=== PATIENT | male | born 1965 | race Caucasian/White ===

== ENCOUNTER 2020-03-03 05:55 | Emergency (ER) | payer SELFPAY ==
[2020-03-03 06:17] VITALS: BP 142/77
--- NOTE | 2020-03-03 08:48 | ER Document Report ---
HPI - HPI Time Seen by Provider: 03/03/20 08:40 Pain Level: 3 Notes: 54-year-old male presents to the emergency room for complaints of right ear pain after he tried to clean his ear with a Q-tip 8 weeks ago while he was incarcerated. States that he tried [id number] drops with some relief but then he was released from incarceration and stopped using drops. Denies any loss of hearing. Has tried [id number] hydrogen peroxide without full relief. Denies any drainage from the ear. Pain is 2 out of 10. Denies fevers, chills, chest pain,palpitations, shortness of breath, dyspnea, nausea, vomiting, diarrhea, abdominal pain, hematuria,blurred vision, double vision, loss of vision, speech changes, LH, dizziness, syncope, headaches, wheezing, ST, URI, neck pain, weakness, bowel or bladder dysfunction, saddle anesthesia, numbness or tingling in bilateral upper or lower extremities equally, muscle paralysis, weakness in bilateral upper or lower extremities equally or rash. MEDICATIONS: I agree with the patient medications as charted by the RN. ALLERGIES: I agree with the allergies as charted by the RN. PAST MEDICAL HISTORY/PAST SURGICAL HISTORY: Reviewed and agree as charted by RN. SOCIAL HISTORY: Reviewed and agree as charted by RN. FAMILY HISTORY: No significant familial comorbid conditions directly related to patient complaint EXAM: Reviewed vital signs as charted by RN. REVIEW OF SYSTEMS:reviewed vital signs by RN CONSTITUTIONAL : Denies fever, chills, or sweats. Denies recent illness. EENT: reports right ear pain. Denies eye, throat, or mouth pain or symptoms. Denies nasal or sinus congestion or discharge. Denies throat, tongue, or mouth swelling or difficulty swallowing. CARDIOVASCULAR: Denies chest pain. Denies palpitations or racing or irregular heart beat. Denies ankle edema. RESPIRATORY: Denies cough, cold, or chest congestion. Denies shortness of breath, difficulty breathing, or wheezing. GASTROINTESTINAL: Denies abdominal pain or distention. Denies nausea, vomiting, or diarrhea. Denies blood in vomitus, stools, or per rectum. Denies black, tarry stools. Denies constipation. GENITOURINARY: Denies difficulty urinating, painful urination, burning, frequency, blood in urine, or discharge. MUSCULOSKELETAL: Denies back or neck pain or stiffness. Denies joint pain or swelling. SKIN: Denies rash, lesions or sores. HEMATOLOGIC : Denies easy bruising or bleeding. LYMPHATIC: Denies swollen, enlarged glands. NEUROLOGICAL: Denies confusion or altered mental status. Denies passing out or loss of consciousness. Denies dizziness or lightheadedness. Denies headache. Denies weakness or paralysis or loss of use of either side. Denies problems with gait or speech. Denies sensory loss, numbness, or tingling. Denies seizures. PSYCHIATRIC: Denies anxiety or stress. Denies depression, suicidal ideation, or homicidal ideation. ALL OTHER SYSTEMS REVIEWED AND NEGATIVE. Dictation was performed using [employer] voice recognition software PHYSICAL EXAMINATION: GENERAL: Well-appearing, well-nourished and in no acute distress. HEAD: Atraumatic, normocephalic. EYES: Pupils equal round and reactive to light, extraocular movements intact, sclera anicteric, conjunctiva are normal. ENT: Right EAC with erythema induration, no drainage. TM intact, no erythema. Left EAC without any erythema induration, TM pearly goddard intact no erythema nares patent, oropharynx clear without exudates. Moist mucous membranes. NECK: Normal range of motion, supple without lymphadenopathy LUNGS: Breath sounds clear to auscultation bilaterally and equal. No wheezes rales or rhonchi. HEART: Regular rate and rhythm without murmurs ABDOMEN: Soft, nontender, nondistended abdomen. No guarding, no rebound. No masses appreciated. Musculoskeletal: Normal range of motion, no pitting or edema. No cyanosis. NEUROLOGICAL: Cranial nerves grossly intact. Normal speech, normal gait. Normal sensory, motor exams PSYCH: Normal mood, normal affect. SKIN: Warm, Dry, normal turgor, no rashes or lesions noted. - REPRODUCTIVE Reproductive: DENIES: : Past Medical History - General Information source: Patient - Social History Smoking Status: Never Smoker Family History: Reviewed & Not Pertinent Patient has homicidal ideation: No - Past Medical History Cardiac Medical History: Reports: Hx Hypertension - on meds Denies: Hx Coronary Artery Disease, Hx Heart Attack Pulmonary Medical History: Denies: Hx Asthma, Hx Bronchitis, Hx COPD, Hx Pneumonia Neurological Medical History: Denies: Hx Cerebrovascular Accident, Hx Seizures Endocrine Medical History: Reports: Hx Diabetes Mellitus Type 2. Denies: Hx Graves' Disease, Hx Hyperthyroidism, Hx Hypothyroidism Renal/ Medical History: Reports: Hx Hydrocele Malignancy Medical History: Denies Hx Bone Cancer, Denies Hx Brain Cancer, Denies Hx Colorectal Cancer, Denies Hx Leukemia, Denies Hx Liver Cancer, Denies Hx Lung Cancer, Denies Hx Lymphoma, Denies Hx Pancreatic Cancer, Denies Hx Prostate Cancer, Denies Hx Renal (Kidney) Cancer, Denies Hx Skin Cancer, Denies Hx Testicular Cancer GI Medical History: Denies: Hx Crohn's Disease, Hx Gastroesophageal Reflux Disease, Hx Hiatal Hernia, Hx Irritable Bowel, Hx Liver Failure, Hx Pancreatitis , Hx Ulcer Musculoskeletal Medical History: Reports Hx Arthritis, Denies Hx Fibromyalgia, Denies Hx Muscular Dystrophy, Denies Hx Systemic Lupus Erythematosus Traumatic Medical History: Denies: Hx Fractures Past Surgical History: Reports: Hx Orthopedic Surgery - left knee. Denies: Hx Colostomy, Hx Pacemaker - Immunizations Hx Diphtheria, Pertussis, Tetanus Vaccination: No Vertical Provider Document - CONSTITUTIONAL Agree With Documented VS: Yes Exam Limitations: No Limitations General Appearance: WD/WN - INFECTION CONTROL TRAVEL OUTSIDE OF THE [place] IN LAST 30 DAYS: No Course - Re-evaluation Re-evalutation: 03/03/20 13:51 Afebrile vital stable no distress. Nurses notes reviewed. Discussed with patient that he does have an infection of his outer ear canal will prescribe him antibiotic drops. Advised to apply cotton to his ears while showering. Advised to use drops for 7 days. Follow-up with PCP after course of treatment. After performing a Medical Screening Examination, I estimate there is LOW risk for malignant otitis media, mastoiditis, MENINGITIS, or ACUTE CORONARY SYNDROME, thus I consider the discharge disposition reasonable. I have reevaluated this patient multiple times and no significant life threatening changes are noted. The patient and I have discussed the diagnosis and risks, and we agree with discharging home to follow-up on an outpatient basis with the understanding that symptoms and presentations can change. We also discussed returning to the Emergency Department immediately if new or worsening symptoms occur. We have discussed the symptoms which are most concerning (e.g., high fevers, confusion) that necessitate immediate return. - Vital Signs Vital signs: Temp Pulse Resp BP Pulse Ox 98.5 F 65 20 142/77 H 98 03/03/20 06:23 03/03/20 06:16 03/03/20 06:16 03/03/20 06:16 03/03/20 06:16 Discharge - Discharge Clinical Impression: Right otitis externa Qualifiers: Otitis externa type: swimmer's ear Chronicity: acute Qualified Code(s): H60.331 - Swimmer's ear, right ear Condition: Stable Disposition: HOME, SELF-CARE Instructions: Use of Ear Drops ([facility]), Otitis Externa ([facility]) Additional Instructions: Use drops as directed. Follow-up with your doctor as needed. Please become balls in the ears while showering to prevent fluid from getting in your ears. Please use medication as directed. Alternate between Tylenol and ibuprofen for pain control. Return immediately for any new or worsening symptoms. Follow up with primary care provider, call tomorrow to make followup appointment. Prescriptions: Ofloxacin [Floxin 0.3% Otic Drops 5 ml] 5 drop OT BID #1 bottle Forms: Return to Work Referrals: SMITH BAILEY MD [Primary Care Provider] - Follow up as needed
== END 2020-03-03 08:55 | disposition home or self-care (01) ==
LOC: ER 05:55
DX: H60.331 Swimmer's ear, right ear (principal); H92.01 Otalgia, right ear; I10 Essential (primary) hypertension; E11.9 Type 2 diabetes mellitus without complications; Z79.899 Other long term (current) drug therapy; Z79.84 Long term (current) use of oral hypoglycemic drugs
CPT/HCPCS: 99282

== ENCOUNTER 2020-03-09 14:31 | Emergency (ER) | payer OTHER ==
--- NOTE | 2020-03-09 15:08 | ER Document Report ---
ED Medical Screen (RME) - General Chief Complaint: Fall Stated Complaint: FALL- LEG/HEAD INJURY Time Seen by Provider: 03/09/20 15:02 Primary Care Provider: SMITH BAILEY MD [Primary Care Provider] - Follow up as needed Mode of Arrival: Wheelchair Information source: Patient Notes: 54-year-old male presented to ED after a fall while on a ladder. He states he and the ladder both slid down the wall he hit his head on the door jam coming down causing a laceration above the left eyebrow and then his legs both got caught in the ladder when the ladder came down catching on the bed frame. He is got contusions to both legs from the knee down to the ankle both legs are very swollen. Patient states his tetanus is up-to-date. We will get x-rays on both lower legs and have him examined by another provider who could lay him down and thoroughly examined his legs. I have greeted and performed a rapid initial assessment of this patient. A comprehensive ED assessment and evaluation of the patient, analysis of test results and completion of medical decision making process will be conducted by an additional ED providers. TRAVEL OUTSIDE OF THE [place] IN LAST 30 DAYS: No - Related Data Allergies/Adverse Reactions: No Known Allergies Allergy (Verified 07/04/14 09:48) Past Medical History - Past Medical History Cardiac Medical History: Reports: Hx Hypertension - on meds Denies: Hx Coronary Artery Disease, Hx Heart Attack Pulmonary Medical History: Denies: Hx Asthma, Hx Bronchitis, Hx COPD, Hx Pneumonia Neurological Medical History: Denies: Hx Cerebrovascular Accident, Hx Seizures Endocrine Medical History: Reports: Hx Diabetes Mellitus Type 2. Denies: Hx Graves' Disease, Hx Hyperthyroidism, Hx Hypothyroidism Renal/ Medical History: Reports: Hx Hydrocele Malignancy Medical History: Denies Hx Bone Cancer, Denies Hx Brain Cancer, Denies Hx Colorectal Cancer, Denies Hx Leukemia, Denies Hx Liver Cancer, Denies Hx Lung Cancer, Denies Hx Lymphoma, Denies Hx Pancreatic Cancer, Denies Hx Prostate Cancer, Denies Hx Renal (Kidney) Cancer, Denies Hx Skin Cancer, Denies Hx Testicular Cancer GI Medical History: Denies: Hx Crohn's Disease, Hx Gastroesophageal Reflux Disease, Hx Hiatal Hernia, Hx Irritable Bowel, Hx Liver Failure, Hx Pancreatitis, Hx Ulcer Musculoskeltal Medical History: Reports Hx Arthritis, Denies Hx Fibromyalgia, Denies Hx Muscular Dystrophy, Denies Hx Systemic Lupus Erythematosus Traumatic Medical History: Denies: Hx Fractures Past Surgical History: Reports: Hx Orthopedic Surgery - left knee. Denies: Hx Colostomy, Hx Pacemaker - Immunizations Hx Diphtheria, Pertussis, Tetanus Vaccination: No Physical Exam - Vital signs Vitals: Temp Pulse Resp BP Pulse Ox 97.5 F 82 20 160/82 H 100 03/09/20 14:36 03/09/20 14:36 03/09/20 14:36 03/09/20 14:36 03/09/20 14:36 Course - Vital Signs Vital signs: Temp Pulse Resp BP Pulse Ox 97.5 F 82 20 160/82 H 100 03/09/20 14:36 03/09/20 14:36 03/09/20 14:36 03/09/20 14:36 03/09/20 14:36 Doctor's Discharge - Discharge Referrals: SMITH BAILEY MD [Primary Care Provider] - Follow up as needed
[2020-03-09 15:45] LABS: ABSOLUTE BASOPHILS # (AUTO) 0.1 10^3/uL (0.0-0.2); ABSOLUTE EOSINOPHILS # (AUTO) 0.2 10^3/uL (0.0-0.6); ABSOLUTE LYMPHOCYTES (AUTO) 1.5 10^3/uL (0.5-4.7); ABSOLUTE NEUT (AUTO) 7.4 10^3/uL (1.7-8.2); EOSINOPHILS % (AUTO) 2.3 % (0-6); HEMATOCRIT 46.1 % (37.9-51.0); HEMOGLOBIN 16.1 g/dL (13.5-17.0); LYMPHOCYTES % (AUTO) 14.9 % (13-45); MEAN CORPUSCULAR HEMOGLOBIN 29.9 pg (27.0-33.4); MEAN CORPUSCULAR HGB CONC 34.9 g/dL (32.0-36.0); MEAN CORPUSCULAR VOLUME 86 fl (80-97); MONOCYTES % (AUTO) 9.9 % (3-13); PLATELET COUNT 195 10^3/uL (150-450); RED BLOOD COUNT 5.37 10^6/uL (4.35-5.55); RED CELL DISTRIBUTION WIDTH 14.2 % (11.5-14.0); SEGMENTED NEUTROPHILS % (AUTO) 71.9 % (42-78); TOTAL CELLS COUNTED % (AUTO) 100 %; WHITE BLOOD COUNT 10.2 10^3/uL (4.0-10.5)
[2020-03-09 15:51] LABS: ALBUMIN 4.6 g/dL (3.5-5.0); ALKALINE PHOSPHATASE 71 U/L (38-126); ANION GAP 8 (5-19); ASPARTATE AMINO TRANSFERASE 31 U/L (17-59); BILIRUBIN,TOTAL 0.6 mg/dL (0.2-1.3); BLOOD UREA NITROGEN 18 mg/dL (7-20); CALCIUM 9.7 mg/dL (8.4-10.2); CARBON DIOXIDE 29 mmol/L (22-30); CHLORIDE 103 mmol/L (98-107); CREATINE KINASE 199 U/L (55-170); GLUCOSE 97 mg/dL (75-110); TOTAL PROTEIN 7.6 g/dL (6.3-8.2)
--- NOTE | 2020-03-09 16:01 | RADIOLOGY REPORT (SQ) ---
EXAM DESCRIPTION: TIB FIB BILAT 2 VIEWS IMAGES COMPLETED DATE/TIME: 03/09/2020 3:45 pm REASON FOR STUDY: fall injury COMPARISON: None. NUMBER OF VIEWS: Two views. TECHNIQUE: Two radiographic images acquired of the right and left tibia and fibula to include the kn ee and ankle in at least one projection. LIMITATIONS: None. FINDINGS: RIGHT: MINERALIZATION: Normal. BONES: No acute fracture or dislocation. No worrisome bone lesions. Degenerative changes at the kne e with moderate to severe medial joint space loss in tricompartment osteophytosis. Plantar and calca osiris enthesophytes. Degenerative changes about the ankle. SOFT TISSUES: No obvious swelling or foreign body. OTHER: No other significant finding. LEFT: MINERALIZATION: Normal. BONES: No acute fracture or dislocation. No worrisome bone lesions. Postsurgical change from total knee arthroplasty. Heterotopic bone about the knee joint and proximal tib-fib syndesmosis. Superior and plantar calcaneal enthesophytes. Midfoot osteophytosis. Degenerative changes about the ankle. SOFT TISSUES: No obvious swelling or foreign body. OTHER: No other significant finding. IMPRESSION: 1. No evidence of acute bony abnormality of either tibia or fibula. 2. Degenerative changes about both knees and ankles. Left total knee arthroplasty. TECHNICAL DOCUMENTATION: JOB ID: [id number] 2010 [employer]- All Rights Reserved Reading location - IP/workstation name: [email or web address]
[2020-03-09 18:18] LABS: APPEARANCE,URINE CLEAR; BILIRUBIN,URINE NEGATIVE (NEGATIVE); COLOR,URINE YELLOW; GLUCOSE, URINE NEGATIVE (NEGATIVE); KETONES,URINE NEGATIVE (NEGATIVE); LEUKOCYTE ESTERASE,URINE NEGATIVE (NEGATIVE); NITRITE,URINE NEGATIVE (NEGATIVE); PROTEIN,URINE NEGATIVE (NEGATIVE); URINE SPECIFIC GRAVITY 1.023; UROBILINOGEN,URINE NEGATIVE mg/dL (<2.0)
[2020-03-09] MEDS ORDERED: LIDOCAINE 1.5%/EPINEPHRINE INJ-PF 30 ML SDV INJ ONE (18:31)
--- NOTE | 2020-03-09 18:36 | ER Document Report ---
ED General - General Chief Complaint: Fall Stated Complaint: FALL- LEG/HEAD INJURY Time Seen by Provider: 03/09/20 15:02 Primary Care Provider: SMITH BAILEY MD [Primary Care Provider] - Follow up as needed Mode of Arrival: Wheelchair TRAVEL OUTSIDE OF THE [place] IN LAST 30 DAYS: No - HPI Notes: Patient is a 54-year-old male who presents to the emergency department for evaluation. He was on a ladder, about 6 feet above the ground, indoors, when the ladder slipped from underneath him. He fell, striking his right forehead against a piece of wood, then fell in between the rungs of the ladder, stuck between the wall and the bed. He scraped his legs on the way in. He has been mobile since then, but notes that there is been significant swelling. His tetanus is up-to-date. He denies any loss of consciousness. No neck or back pain. He states he did have some significant bleeding from the left eyebrow region but it is stopped. He denies any difficulty seeing, speaking, swallowing. He currently puts his pain at a 2 out of 5. Patient also asks about his right ear. He was actually seen in the emergency department for some right ear pain and swelling. He was diagnosed with an otitis externa, started on some sort of antibiotic drops. He states that he had significant swelling at this time. He states that the pain is feeling improved, but he still feels as if he is "hearing through a tunnel." No fevers or chills. No rhinorrhea, no sore throat. - Related Data Allergies/Adverse Reactions: No Known Allergies Allergy (Verified 07/04/14 09:48) Home Medications: Metformin, simvastatin, losartan Past Medical History - General Information source: Patient - Social History Smoking Status: Former Smoker Frequency of alcohol use: Rare Drug Abuse: None Family History: Reviewed & Not Pertinent Patient has homicidal ideation: No - Past Medical History Cardiac Medical History: Reports: Hx Hypercholesterolemia, Hx Hypertension - on meds Denies: Hx Coronary Artery Disease, Hx Heart Attack Pulmonary Medical History: Denies: Hx Asthma, Hx Bronchitis, Hx COPD, Hx Pneumonia Neurological Medical History: Denies: Hx Cerebrovascular Accident, Hx Seizures Endocrine Medical History: Reports: Hx Diabetes Mellitus Type 2. Denies: Hx Graves' Disease, Hx Hyperthyroidism, Hx Hypothyroidism Renal/ Medical History: Reports: Hx Hydrocele Malignancy Medical History: Denies Hx Bone Cancer, Denies Hx Brain Cancer, Denies Hx Colorectal Cancer, Denies Hx Leukemia, Denies Hx Liver Cancer, Denies Hx Lung Cancer, Denies Hx Lymphoma, Denies Hx Pancreatic Cancer, Denies Hx Prostate Cancer, Denies Hx Renal (Kidney) Cancer, Denies Hx Skin Cancer, Denies Hx Testicular Cancer GI Medical History: Denies: Hx Crohn's Disease, Hx Gastroesophageal Reflux Disease, Hx Hiatal Hernia, Hx Irritable Bowel, Hx Liver Failure, Hx Pancreatitis, Hx Ulcer Musculoskeletal Medical History: Reports Hx Arthritis, Denies Hx Fibromyalgia, Denies Hx Muscular Dystrophy, Denies Hx Systemic Lupus Erythematosus Traumatic Medical History: Denies: Hx Fractures Past Surgical History: Reports: Hx Orthopedic Surgery - left knee, Hx Testicular Surgery - Hydrocele. Denies: Hx Colostomy, Hx Pacemaker - Immunizations Hx Diphtheria, Pertussis, Tetanus Vaccination: No Review of Systems - Review of Systems Musculoskeletal: See HPI Skin: See HPI -: Yes All other systems reviewed and negative Physical Exam - Vital signs Vitals: Temp Pulse Resp BP Pulse Ox 97.5 F 82 20 160/82 H 100 03/09/20 14:36 03/09/20 14:36 03/09/20 14:36 03/09/20 14:36 03/09/20 14:36 - Notes Notes: Vital signs reviewed, please refer to chart. Head is normocephalic. 2.5 cm linear laceration noted to the left brow. Pupils equal round, reactive to light. Mild amount of edema noted to the right external auditory canal with some small exudative discharge noted. Unable to fully visualize TM. Neck is supple without meningismus. Heart is regular rate and rhythm. Lungs are clear to auscultation bilaterally. Abdomen is soft, nontender, normoactive bowel soun ds throughout. Extremities without cyanosis, clubbing. Posterior calves are nontender. Anterior lower legs are tender bilaterally. Peripheral pulses are equal. Abrasions noted to bilateral shins. Patient is awake, alert, oriented x3. Cranial nerves II - XII are grossly intact without focal neurological deficits. Strength is plus 5 out of 5 bilateral upper and lower extremities. Sensation is intact. Reflexes symmetrical. Intact [id number], rapid alternating movements, [id number]. Course - Re-evaluation Re-evalutation: 03/09/20 19:26 Patient presents to the emergency department for evaluation. Regarding his ear, certainly he still has some residual appearing infection, I am unable to visualize the TM. He already has follow-up regarding that tomorrow, he is encouraged to keep that and continue his ofloxacin. His x-rays are unremarkable. He is told to keep his legs elevated. We will clean his leg w ounds, place him in Ap wrap with compression. He is warned about signs of compartment syndrome and told to return with any worsening. I did closed his facial laceration, he is given instructions to have sutures removed in 5 to 7 days, watch for signs of infection. He voiced understanding to care instructions. He will follow-up with primary care next week, return to the emergency department with worsening or new concerning symptoms of any sort. - Vital Signs Vital signs: Temp Pulse Resp BP Pulse Ox 98.0 F 84 18 150/86 H 98 03/09/20 18:40 03/09/20 18:40 03/09/20 18:40 03/09/20 18:40 03/09/20 18:40 - Laboratory Result Diagrams: 03/09/20 15:20 03/09/20 15:20 Laboratory results interpreted by me: 03/09/20 03/09/20 03/09/20 15:18 15:20 15:20 RDW 14.2 H Creatine Kinase 199 H Urine Blood SMALL H - Diagnostic Test Radiology reviewed: Reports reviewed Radiology results interpreted by me: 03/09/20 19:27 Tibia/Fibula X-Ray 03/09/20 15:08 IMPRESSION: 1. No evidence of acute bony abnormality of either tibia or fibula. 2. Degenerative changes about both knees and ankles. Left total knee arthroplasty. Procedures - Laceration/Wound Repair Left Face Wound length (cm): 2.5 Wound's Depth, Shape: Superficial, Linear Laceration pre-procedure: Sterile PPE donned, BridgetClechayo applied Anesthetic type: 1% Lidocaine w/epi Volume Anesthetic (mLs): 2 Wound explored: Clean, No foreign body removed Suture Size/Type: 5:0, Prolene Number of Sutures: 7 Post-procedure NV exam normal: Yes Complications: No Discharge - Discharge Clinical Impression: Bilateral sanchez abrasions Facial laceration Qualifiers: Encounter type: initial encounter Qualified Code(s): S01.81XA - Laceration without foreign body of other part of head, initial encounter Contusion of lower leg Qualifiers: Encounter type: initial encounter Laterality: unspecified laterality Qualified Code(s): S80.10XA - Contusion of unspecified lower leg, initial encounter Condition: Stable Disposition: HOME, SELF-CARE Instructions: Antibiotic Ointment Protection ([facility]), Laceration Care ([facility]), Soap Cleansing ([facility]), Contusion ([facility]) Additional Instructions: Keep wounds clean with soap and water. Tylenol or ibuprofen as needed for pain. Do not submerge the sutured wound. Have sutures removed in 5 to 7 days. Watch for signs of infection, including but not limited to increased redness, drainage, fevers, vomiting. Keep your legs elevated as much as possible. If you develop increased swelling, pain, numbness, or any other new or concerning symptoms, please return immediately to the emergency department for evaluation. Otherwise, follow-up with your primary care provider next week. Referrals: SMITH BAILEY MD [Primary Care Provider] - Follow up as needed
[2020-03-09 20:12] VITALS: BP 152/78
== END 2020-03-09 20:11 | disposition home or self-care (01) ==
LOC: ER 14:31
PROC: 0HQ1XZZ Repair Face Skin, External Approach (ICD-10-PCS; principal; 2020-03-09)
DX: S01.81XA Laceration without foreign body of other part of head, initial encounter (principal); S80.10XA Contusion of unspecified lower leg, initial encounter; S80.812A Abrasion, left lower leg, initial encounter; S80.811A Abrasion, right lower leg, initial encounter; W11.XXXA Fall on and from ladder, initial encounter; Z79.84 Long term (current) use of oral hypoglycemic drugs; Z79.899 Other long term (current) drug therapy; Z87.891 Personal history of nicotine dependence; I10 Essential (primary) hypertension
CPT/HCPCS: 99283; 36415; 82550; 85025; 80053; 81001; 73590; 12011; J3490

== ENCOUNTER 2020-03-16 06:06 | Emergency (ER) | payer OTHER ==
[2020-03-16 06:12] VITALS: BP 135/75
--- NOTE | 2020-03-16 06:44 | ER Document Report ---
ED Suture/Wound Recheck - General Chief Complaint: Suture Removal Stated Complaint: SUTURE REMOVAL Time Seen by Provider: 03/16/20 06:20 Primary Care Provider: SMITH BAILEY MD [Primary Care Provider] - Follow up as needed Notes: Patient is a 55-year-old male that comes emergency department for chief complaint of suture removal. Patient was seen here 1 week ago after he had a fall on a ladder, he sustained a laceration to the left eyebrow area with 7 sutures. He denies any drainage, pain, or swelling to the area. He denies any other complaints. TRAVEL OUTSIDE OF THE [place] IN LAST 30 DAYS: No - Related Data Allergies/Adverse Reactions: No Known Allergies Allergy (Verified 07/04/14 09:48) Past Medical History - General Information source: Patient - Social History Smoking Status: Never Smoker Lives with: Family Family History: Reviewed & Not Pertinent - Past Medical History Cardiac Medical History: Reports: Hx Hypercholesterolemia, Hx Hypertension - on meds Denies: Hx Coronary Artery Disease, Hx Heart Attack Pulmonary Medical History: Denies: Hx Asthma, Hx Bronchitis, Hx COPD, Hx Pneumonia Neurological Medical History: Denies: Hx Cerebrovascular Accident, Hx Seizures Endocrine Medical History: Reports: Hx Diabetes Mellitus Type 2. Denies: Hx Graves' Disease, Hx Hyperthyroidism, Hx Hypothyroidism Renal/ Medical History: Reports: Hx Hydrocele Malignancy Medical History: Denies Hx Bone Cancer, Denies Hx Brain Cancer, Denies Hx Colorectal Cancer, Denies Hx Leukemia, Denies Hx Liver Cancer, Denies Hx Lung Cancer, Denies Hx Lymphoma, Denies Hx Pancreatic Cancer, Denies Hx Prostate Cancer, Denies Hx Renal (Kidney) Cancer, Denies Hx Skin Cancer, Denies Hx Testicular Cancer GI Medical History: Denies: Hx Crohn's Disease, Hx Gastroesophageal Reflux Disease, Hx Hiatal Hernia, Hx Irritable Bowel, Hx Liver Failure, Hx Pancreatitis, Hx Ulcer Musculoskeletal Medical History: Reports Hx Arthritis, Denies Hx Fibromyalgia, Denies Hx Muscular Dystrophy, Denies Hx Systemic Lupus Erythematosus Traumatic Medical History: Denies: Hx Fractures Past Surgical History: Reports: Hx Orthopedic Surgery - left knee, Hx Testicular Surgery - Hydrocele. Denies: Hx Colostomy, Hx Pacemaker - Immunizations Hx Diphtheria, Pertussis, Tetanus Vaccination: No Review of Systems - Review of Systems Constitutional: No symptoms reported EENT: No symptoms reported Cardiovascular: No symptoms reported Respiratory: No symptoms reported Gastrointestinal: No symptoms reported Genitourinary: No symptoms reported Male Genitourinary: No symptoms reported Musculoskeletal: No symptoms reported Skin: See HPI Hematologic/Lymphatic: No symptoms reported Neurological/Psychological: No symptoms reported Physical Exam - Vital signs Vitals: Temp Pulse BP Pulse Ox 98.3 F 73 135/75 H 97 03/16/20 06:12 03/16/20 06:12 03/16/20 06:12 03/16/20 06:12 - Notes Notes: GENERAL: Alert, interacts well. No acute distress. HEAD: Normocephalic, atraumatic. EYES: Pupils equal, round, and reactive to light. Extraocular movements intact. ENT: Oral mucosa moist, tongue midline. Oropharynx unremarkable. Airway patent. LUNGS: Clear to auscultation bilaterally, no wheezes, rales, or rhonchi. No respiratory distress. Non-tender chest wall. HEART: Regular rate and rhythm. No murmur EXTREMITIES: Moves all 4 extremities spontaneously. No edema, normal radial and dorsalis pedis pulses bilaterally. No cyanosis. BACK: no cervical, thoracic, lumbar midline tenderness. No saddle anesthesia, normal distal neurovascular exam. NEUROLOGICAL: Alert and oriented x3. Normal speech. SKIN: There is a small 2.5 cm linear horizontal laceration over the left eyebrow area with Prolene sutures. No surrounding erythema, tenderness, swelling, or drainage. Course - Re-evaluation Re-evalutation: Sutures removed without incident, no signs of infection, no concerning findings otherwise - Vital Signs Vital signs: Temp Pulse Resp BP Pulse Ox 98.3 F 73 135/75 H 97 03/16/20 06:12 03/16/20 06:12 03/16/20 06:12 03/16/20 06:12 Discharge - Discharge Clinical Impression: Encounter for removal of sutures Condition: Stable Disposition: HOME, SELF-CARE Additional Instructions: Sutures have been removed, no concerning findings are noted. Follow-up with primary care. Return for any concerning symptoms including developing pain, redness, swelling, or any other concerning symptoms. Referrals: SMITH BAILEY MD [Primary Care Provider] - Follow up as needed
== END 2020-03-16 06:25 | disposition home or self-care (01) ==
LOC: ER 06:06
DX: S01.112D Laceration without foreign body of left eyelid and periocular area, subsequent encounter (principal); W11.XXXD Fall on and from ladder, subsequent encounter
CPT/HCPCS: 99281